=== PATIENT | female | born 1995 | race Caucasian/White ===

== ENCOUNTER 2019-02-07 12:45 | Emergency (ER) | payer OTHER ==
[~2019-02-07] VITALS: Ht 160 cm; Wt 54.1 kg
[2019-02-07 13:03] LABS: ALBUMIN 4.8 g/dL (3.5-5.0); CALCIUM 9.7 mg/dL (8.3-10.5); TOTAL BILIRUBIN 0.5 mg/dL (0.2-1.2)
[2019-02-07 13:07] LABS: HEMATOCRIT 43.4 % (37.0-47.0); HEMOGLOBIN 14.6 g/dL (12.5-16.0); MEAN CELL VOLUME 89 fl (78-100); MEAN CORPUSCULAR HEMOGLOBIN 30 pg (27-31); MEAN CORPUSCULAR HGB CONC 34 g/dL (33-37); MEAN PLATELET VOLUME 9.6 fl (7.4-10.4); MONOCYTE 6 % (3-10); NEUTROPHILS 86 % (42-75); PLATELET COUNT 314 K/mm3 (130-400); RED BLOOD COUNT 4.88 M/mm3 (4.10-5.30); RED CELL DISTRIBUTION WIDTH 12.4 % (11.5-14.5); WHITE BLOOD COUNT 19.5 K/mm3 (4.8-10.8)
[2019-02-07 13:08] LABS: LYMPHOCYTE 8 % (20-51)
[2019-02-07 13:13] LABS: URINE APPEARANCE CLEAR; URINE BILIRUBIN NEGATIVE (NEGATIVE); URINE BLOOD NEGATIVE (NEGATIVE); URINE COLOR YELLOW; URINE GLUCOSE NEGATIVE (NEGATIVE); URINE KETONE 2+ (NEGATIVE); URINE LEUKOCYTE ESTERASE NEGATIVE (NEGATIVE); URINE MUCUS PRESENT (NOT PRESENT); URINE NITRATE NEGATIVE (NEGATIVE); URINE PROTEIN(semi-quant) NEGATIVE (NEGATIVE); URINE UROBILINOGEN NORMAL (NORMAL)
[2019-02-07 17:04] VITALS: BP 117/73
== END 2019-02-07 16:55 | disposition home or self-care (01) ==
LOC: ED 12:45
PROVIDERS: Physician Assistant
DX: D72.829 Elevated white blood cell count, unspecified (principal); R10.9 Unspecified abdominal pain; Z98.890 Other specified postprocedural states
CPT/HCPCS: J7030; Q9967

== ENCOUNTER → 2019-10-14 | Outpatient (CLI) | payer OTHER | LOC: LAB 14:06 | DX: R50.9 Fever, unspecified (principal); R05 Cough ==

== ENCOUNTER 2019-11-14 13:04 | Emergency (ER) | payer OTHER ==
[~2019-11-14] VITALS: Ht 7.6 cm; Wt 54.1 kg
[2019-11-14] MEDS ORDERED: FLUOXETINE HCL20 MG PO (13:24)
[2019-11-14] MEDS ORDERED: AMOXICILLIN AND1 TA2 PO (13:24)
[2019-11-14] MEDS ORDERED: TYLENOL EXTRA500 M2 PO (13:25)
[2019-11-14 13:54] LABS: HEMATOCRIT 43.6 % (37.0-47.0); HEMOGLOBIN 14.4 g/dL (12.5-16.0); MEAN CELL VOLUME 89 fl (78-100); MEAN CORPUSCULAR HEMOGLOBIN 30 pg (27-31); MEAN CORPUSCULAR HGB CONC 33 g/dL (33-37); MEAN PLATELET VOLUME 9.7 fl (7.4-10.4); PLATELET COUNT 285 K/mm3 (130-400); RED BLOOD COUNT 4.88 M/mm3 (4.10-5.30); RED CELL DISTRIBUTION WIDTH 13.4 % (11.5-14.5); WHITE BLOOD COUNT 15.1 K/mm3 (4.8-10.8)
[2019-11-14 14:03] LABS: ALBUMIN 4.6 g/dL (3.5-5.0)
[2019-11-14 14:04] LABS: CALCIUM 10.4 mg/dL (8.3-10.5)
[2019-11-14 14:06] LABS: TOTAL PROTEIN 8.7 g/dL (6.4-8.3)
[2019-11-14 14:07] LABS: TOTAL BILIRUBIN 0.5 mg/dL (0.2-1.2)
[2019-11-14 14:09] LABS: LYMPHOCYTE 11 % (20-51); MONOCYTE 11 % (3-10); NEUTROPHILS 78 % (42-75)
[2019-11-14 14:21] LABS: D-DIMER 0.51 mg/L FEU (0.15-0.50)
[2019-11-14 16:04] LABS: URINE WBC 0 /hpf (0-3)
[2019-11-14 16:23] LABS: URINE APPEARANCE CLEAR; URINE COLOR YELLOW
[2019-11-14 16:24] LABS: URINE BILIRUBIN NEGATIVE (NEGATIVE); URINE BLOOD TRACE (NEGATIVE); URINE GLUCOSE NEGATIVE (NEGATIVE); URINE KETONE 2+ (NEGATIVE); URINE LEUKOCYTE ESTERASE NEGATIVE (NEGATIVE); URINE NITRATE NEGATIVE (NEGATIVE); URINE PROTEIN(semi-quant) TRACE mg/dL (NEGATIVE); URINE UROBILINOGEN NORMAL (NORMAL)
[2019-11-14] MEDS ORDERED: ZOFRAN ODT4 MG PO (16:46)
[2019-11-14 17:41] VITALS: BP 121/73
== END 2019-11-14 17:28 | disposition home or self-care (01) ==
LOC: ED 13:04
PROVIDERS: Nurse Practitioner
DX: R50.9 Fever, unspecified (principal); R11.2 Nausea with vomiting, unspecified; Z20.828 Contact with and (suspected) exposure to other viral communicable diseases
CPT/HCPCS: J2405; J3010; J7120; Q9967

== ENCOUNTER → 2019-11-17 | Outpatient (CLI) | payer OTHER ==
[2019-11-14 17:41] VITALS: BP 121/73
[~2019-11-17] MED LIST: AMOXICILLIN AND1 TA2 PO; FLUOXETINE HCL20 MG PO; TYLENOL EXTRA500 M2 PO; ZOFRAN ODT4 MG PO
== END ==
LOC: LAB 13:59
DX: R50.9 Fever, unspecified (principal)

== ENCOUNTER → 2020-01-19 | Outpatient (CLI) | payer OTHER | LOC: RAD 14:06 | DX: S62.336D Displaced fracture of neck of fifth metacarpal bone, right hand, subsequent encounter for fracture with routine healing (principal) ==

== ENCOUNTER → 2020-02-17 | Outpatient (CLI) | payer OTHER | LOC: RAD 10:33 | DX: S12.191D Other nondisplaced fracture of second cervical vertebra, subsequent encounter for fracture with routine healing (principal); S22.029D Unspecified fracture of second thoracic vertebra, subsequent encounter for fracture with routine healing; V87.7XXD Person injured in collision between other specified motor vehicles (traffic), subsequent encounter; S62.306D Unspecified fracture of fifth metacarpal bone, right hand, subsequent encounter for fracture with routine healing ==

== ENCOUNTER → 2020-03-04 | Outpatient (CLI) | payer OTHER ==
[2020-03-04 15:13] LABS: ALBUMIN 4.3 g/dL (3.5-5.0); POTASSIUM 4.1 mmol/L (3.5-5.1)
[2020-03-04 15:14] LABS: CALCIUM 9.2 mg/dL (8.3-10.5)
[2020-03-04 15:16] LABS: TOTAL PROTEIN 7.4 g/dL (6.4-8.3)
[2020-03-04 15:17] LABS: TOTAL BILIRUBIN 0.4 mg/dL (0.2-1.2)
[2020-03-04 15:19] LABS: EOS % 0.1 % (1.0-5.0); HEMATOCRIT 39.6 % (37.0-47.0); HEMOGLOBIN 13.1 g/dL (12.5-16.0); MEAN CELL VOLUME 90 fl (78-100); MEAN CORPUSCULAR HEMOGLOBIN 30 pg (27-31); MEAN CORPUSCULAR HGB CONC 33 g/dL (33-37); MEAN PLATELET VOLUME 10.1 fl (7.4-10.4); MONO # 0.6 (0.20-0.80); NEU # 4.5 (1.40-6.50); PLATELET COUNT 263 K/mm3 (130-400); RED CELL DISTRIBUTION WIDTH 12.1 % (11.5-14.5); WHITE BLOOD COUNT 7.1 K/mm3 (4.8-10.8)
== END ==
LOC: LAB 13:48
PROVIDERS: Family Medicine
DX: Z00.00 Encounter for general adult medical examination without abnormal findings (principal); E78.5 Hyperlipidemia, unspecified